=== PATIENT | female | born 1985 | race Asian ===

== ENCOUNTER 2023-11-17 08:00 | Outpatient (CLI) | payer OTHER ==
--- NOTE | 2023-11-17 14:52 | XRAY Report ---
PROCEDURE: Shoulder 2+V RT INDICATIONS: UNSPECIFIED INJURY OF RIGHT SHOULDER AND UPPER ARM TECHNIQUE: 3 views of the shoulder were acquired. COMPARISON: None. FINDINGS: Bones: No acute fractures or dislocations. No suspicious bony lesions. Visualized ribs appear inta ct. Mild acromioclavicular joint osteoarthrosis. Soft tissues: No suspicious soft tissue calcifications. The visualized lungs are within normal limi ts. IMPRESSION: 1.No acute osseous abnormality. If symptoms persist or there is continued clinical concern, further e valuation with MRI or CT may be helpful. 2.Mild acromioclavicular joint osteoarthrosis. Reviewed by: Song Briggs MD on 11/17/2023 2:50 PM PDT Approved by: Song Briggs MD on 11/17/2023 2:50 PM PDT Station ID: [id number]
== END 2023-11-17 23:59 | disposition home or self-care (01) ==
LOC: DI.N 08:00
PROVIDERS: ATTEND Physician Assistant
DX: M19.011 Primary osteoarthritis, right shoulder (principal)